=== PATIENT | female | born 1950 | race Caucasian/White ===

== ENCOUNTER 2017-02-15 15:12 | Inpatient (IN) | payer MEDICARE ==
[2017-02-15] MEDS ORDERED: Metoclopramide HCl 10 MG/2 ML VIAL ONE (15:52)
--- NOTE | 2017-02-15 16:03 | RAD ---
PORTABLE CHEST: 02/15/17 HISTORY: Hyperventilation, dizziness. Heart size is within normal limits. There are atherosclerotic changes of the aorta. Lungs show some l inear scar. No focal infiltrates. IMPRESSION: No active intrathoracic disease. POS: [facility]
[2017-02-15 16:26] LABS: ALT (SGPT) 23 U/L (8-55); AST (SGOT) 33 U/L (5-34); Alkaline Phosphatase 72 U/L (40-150); Anion Gap 18 mmol/L (10-20); BUN (Urea Nitrogen) 14 mg/dL (9.8-20.1); Bilirubin, Total 0.7 mg/dL (0.2-1.2); CK (CPK) 152 U/L (29-168); Calc. Creatinine Clearance 0 mL/min (70-130); Calcium 9.9 mg/dL (7.8-10.44); Carbon Dioxide 22 mmol/L (23-31); Chloride 87 mmol/L (98-107); Estimated GFR-MDRD 84; Globulin 2.5 g/dL (2.4-3.5); Lipase 15 U/L (8-78); Magnesium 1.5 mg/dL (1.6-2.6); Protein, Total 6.8 g/dL (6.0-8.3)
--- NOTE | 2017-02-15 16:33 | CT ---
NONCONTRAST CT OF THE BRAIN 02/15/17 INDICATION: Altered mental status. COMPARISON: Prior exam dated 05/13/16. FINDINGS: No acute infarct, hemorrhage or hydrocephalus is evident. Generalized cerebral atrophy is similar. Sk ull and extracranial soft tissues are unremarkable. IMPRESSION: No acute intracranial abnormality. POS: [facility]
[2017-02-15 16:42] LABS: #Basophils 0.1 thou/uL (0.0-0.2); #Eosinphils 0.1 thou/uL (0.0-0.7); #Lymphocytes 2.1 thou/uL (1.20-3.40); #Monocytes 0.6 thou/uL (0.11-0.59); #Neutrophils 4.7 thou/uL (1.40-6.50); %Basophils 0.9 % (0.0-1.0); %Eosinophils 1.6 % (0.0-10.0); %Lymphocytes 27.7 % (21.0-51.0); %Monocytes 8.1 % (0.0-10.0); Hematocrit 40.3 % (36.0-47.0); Mean Platelet Volume 7.7 fL (7.4-10.4); Red Blood Cell (RBC) Count 4.47 mill/uL (4.20-5.40); White Blood Cell (WBC) Count 7.7 thou/uL (4.8-10.8)
[2017-02-15 16:59] LABS: Troponin I Less than 0.010 ng/mL (< 0.028)
[2017-02-15] MEDS ORDERED: Acetaminophen 325 MG TAB PO PRN (18:34)
[2017-02-15] MEDS ORDERED: Acetaminophen 650 MG Suppository PR PRN (18:34)
[2017-02-15] MEDS ORDERED: ALPRAZolam 0.25 MG TAB ONE (18:44)
[2017-02-15] MEDS ORDERED: Sodium Chloride 0.9% 1,000 ML IV SCH (18:45)
[2017-02-15] MEDS ORDERED: Magnesium Sulfate 4 GM in Sodium Chloride 0.9% 250 ML 250 ML IVPB SCH (20:00)
--- NOTE | 2017-02-15 20:17 | HP ---
PRIMARY CARE PHYSICIAN: Sundar Mendez M.D. CHIEF COMPLAINT: Confusion. HISTORY OF PRESENT ILLNESS: Ms. Ornelas is a pleasant 66-year-old lady, who was seen at [facility] on 02/15/2017. She reportedly used to scuba dive about 20 years ago. Last year, she went scuba diving and had a maribeth ef episode of confusion. Today, she went scuba diving again. She reports that the pool was probably 20-feet deep. She was in the pool for about 3 hours. When she got out of the pool, she felt disori ented. She was reportedly confused, mumbling. She was therefore brought to the emergency room. She denies any chest pain or shortness of breath. She denies any fevers or chills. She was reported ly hyperventilating when she came to the emergency room. She denies any nausea or vomiting. She also reports that when she got out of the pool, she had cramps in her calves, nausea, anxiety, ti ngling in fingers, dizziness, and headache. All the symptoms have resolved. REVIEW OF SYSTEMS: The following complete review of systems was negative, unless otherwise mentioned in the HPI or below: Constitutional: Weight loss or gain, sense of well-being, ability to conduct usual activities, exerc ise tolerance. Skin/Breast: Rash, itching, changes in hair growth or loss, nail changes, breast lumps, tenderness, swelling, nipple discharge. Eyes: Vision, double vision, tearing, blind spots, pain. ENT/Mouth: Headaches (location, time of onset, duration, precipitating factors), vertigo, lightheade dness, injury. Vision, double vision, tearing, blind spots, pain, nose bleeding, colds, obstruction, discharge, dental difficulties, gingival bleeding, dentures, neck stiffness, pain, tenderness, masses in thyroid or other areas. Cardiovascular: Precordial pain, substernal distress, palpitations, syncope, dyspnea on exertion, or thopnea, nocturnal paroxysmal dyspnea, edema, cyanosis, hypertension, heart murmurs, varicosities, ph lebitis, claudication. Respiratory: Pain, shortness of breath, wheezing, stridor, cough, hemoptysis, fever or night sweats. Gastrointestinal: Poor appetite, dysphagia, indigestion, abdominal pain, heartburn, eructation, naus ea, vomiting, hematemesis, jaundice, constipation, or diarrhea, abnormal stools (francisco-colored, tarry, bloody, greasy, foul-smelling), flatulence, hemorrhoids, recent changes in bowel habits. Genitourinary: Urgency, frequency, dysuria, nocturia, hematuria, polyuria, oliguria, unusual (or yue nge in) color of urine, stones, hesitancy, change in size of stream, dribbling, acute retention or in continence, libido, potency. Musculoskeletal: Pain, swelling, redness or heat of muscles or joints, limitation, of motion, muscul ar weakness, atrophy, cramps. Neurologic/Psychiatric: Convulsions, paralyzes, tremor, incoordination, paresthesias, difficulties w ith memory of speech, sensory or motor disturbances, or muscular coordination (ataxia, tremor), emoti onal problems, anxiety, depression, previous psychiatric care, unusual perceptions, hallucinations. Allergy/Immunologic: Skin rash, anemia, bleeding tendency, polydipsia, polyuria, intolerance to heat or cold. PAST MEDICAL HISTORY: Significant for hypertension and dyslipidemia. PAST SURGICAL HISTORY: Significant for back surgery x2, neck surgery, bilateral knee surgery, deric an section x2, and hysterectomy. PSYCHIATRIC HISTORY: Significant for depression and anxiety. SOCIAL HISTORY: Patient denies tobacco use, alcohol use, or recreational drug use. She uses marijua na in the past. FAMILY HISTORY: Significant for stroke in both parents. ALLERGIES: No known drug allergies. CURRENT MEDICATIONS: She does not recall the names of her medications, tells me that she takes blood pressure pills. PHYSICAL EXAMINATION: GENERAL: Ms. Ornelas is awake and alert, not in acute distress. VITAL SIGNS: Blood pressure is 152/85, pulse is 68. She is breathing at rate of 14 and saturating 9 8% on room air. She is afebrile. EYES: No scleral icterus, no conjunctival pallor. ENT: Moist mucosal membranes, no oropharyngeal erythema or exudates. NECK: Supple, nontender, normal range of movement, trachea is midline. RESPIRATORY: Accessory muscles of breathing are not active. Chest wall movements are symmetric bila terally. LUNGS: Clear to auscultation without wheeze, rhonchi, or crepitations. CARDIOVASCULAR: S1 and S2 are heard, regular. Peripheral pulses palpable. No carotid bruit, no per icardial rub. ABDOMEN: Soft, nontender, bowel sounds heard, no hepatomegaly, no splenomegaly. NEUROLOGIC: Cranial nerves II-XII are intact. Power is 5/5 in all 4 extremities. No focal motor or sensory deficits. Cerebellar exam unremarkable. Deep tendon reflexes 2+, plantar reflexes downgoin g bilaterally. MUSCULOSKELETAL: Power is 5/5 in all 4 extremities. Normal range of movement at all major extremity joints. LYMPHATIC: No cervical lymphadenopathy. SKIN: No rashes or subcutaneous nodules. PSYCHIATRIC: Normal mood, normal affect, patient is oriented to person, place, month, day of the wee k, and year, but could not tell me the exact date. LABORATORY DATA: Ms. Ornelas's labs and investigations were reviewed. I reviewed her electrocardiog alex, which shows normal sinus rhythm, no ST changes to suggest an acute coronary syndrome. I also re viewed her chest x-ray, which does not show any pulmonary infiltrates. CT scan of the brain done wit hout contrast did not reveal any acute intracranial abnormalities. Laboratory investigation show unr emarkable CBC, hyponatremia with sodium of 124, hypokalemia with potassium of 3.4, normal creatinine, decreased magnesium of 1.5, normal calcium, normal liver profile, normal lipase, and normal troponin I. ASSESSMENT AND PLAN: Ms. Ornelas is a pleasant 66-year-old lady, who was seen at [facility] on 02/15/2017. Her problem list includes: 1. Acute encephalopathy: Etiology unclear, she is hyponatremic at this time. We will also check ur ine studies to rule out urinary tract infection. 2. Hyponatremia: Etiology unclear. Once medications are clarified, we will hold any diuretics. We will initiate workup for hyponatremia. We will hydrate with normal saline and recheck her sodium le keisha. She reports that she is on low-sodium diet at home. We will start her on regular diet here. 3. Hypokalemia. Replace potassium, recheck. 4. Hypomagnesemia: Replace magnesium, recheck magnesium level. 5. Hypertension. Monitor vital signs, titrate antihypertensives as needed. 6. Dyslipidemia: Resume home medications once clarified. Many thanks for allowing me to participate in your patient's care. Please feel free to contact me wi th any questions or concerns. LEVEL OF RISK: High. LEVEL OF COMPLEXITY: High.
[2017-02-15] MEDS: NS 0.9% w/ 40 MEQ KCL 1,000 ML IV SCH (21:24)
[2017-02-15 23:57] VITALS: BMI 22.4
[2017-02-16] MEDS: NS 0.9% w/ 40 MEQ KCL 1,000 ML IV SCH (04:01)
[2017-02-16 05:26] LABS: Bilirubin Negative (Negative); Blood, Urine Negative (Negative); Glucose, Urine (Dipstick) Negative (Negative); Ketone, Urine Negative (Negative); Nitrite Negative (Negative); Protein, Urine (Dipstick) Negative (Neg-Trace); Urobilinogen 0.2 mg/dL (0.2-1.0)
[2017-02-16 06:04] LABS: #Eosinphils 0.1 thou/uL (0.0-0.7); #Lymphocytes 1.7 thou/uL (1.20-3.40); #Monocytes 0.5 thou/uL (0.11-0.59); #Neutrophils 2.2 thou/uL (1.40-6.50); %Basophils 0.3 % (0.0-1.0); %Eosinophils 3.2 % (0.0-10.0); %Lymphocytes 36.5 % (21.0-51.0); %Monocytes 11.6 % (0.0-10.0); Hematocrit 38.3 % (36.0-47.0); Mean Platelet Volume 7.1 fL (7.4-10.4); Red Blood Cell (RBC) Count 4.16 mill/uL (4.20-5.40); White Blood Cell (WBC) Count 4.5 thou/uL (4.8-10.8)
[2017-02-16 06:27] LABS: Anion Gap 8 mmol/L (10-20); BUN (Urea Nitrogen) 11 mg/dL (9.8-20.1); Calc. Creatinine Clearance 84 mL/min (70-130); Calcium 8.6 mg/dL (7.8-10.44); Carbon Dioxide 28 mmol/L (23-31); Chloride 104 mmol/L (98-107); Cholesterol 129 mg/dl (< 200 Desired); Estimated GFR-MDRD Greater than 90; LDL Cholesterol, Calculated 64 mg/dL; Magnesium 2.7 mg/dL (1.6-2.6)
[2017-02-16] MEDS ORDERED: FLU VACC TS2017-18 (>65YR) 0.5 ML SYRINGE IM ONE (09:00)
[2017-02-16] MEDS ORDERED: Enoxaparin Sodium 40 MG/0.4 ML SYRINGE SC SCH (09:00)
[2017-02-16 09:38] VITALS: BP 122/78; TEMP 98.1
--- NOTE | 2017-02-16 11:41 | PDOC.PN ---
- Subjective Encounter Start Date: 02/16/17 Encounter Start Time: 11:39 Ms. Ornelas was seen today in follow-up of Hyponatremia. She says she feels much better, and wants to go home. - Objective Resuscitation Status: Resuscitation Status FULL:Full Resuscitation MAR Reviewed: Yes Vital Signs & Weight: Vital Signs (12 hours) Temp Pulse Resp BP Pulse Ox 02/16/17 08:40 98.1 F 83 16 122/78 97 02/16/17 08:20 98.1 F 83 16 02/16/17 04:00 98.2 F 79 16 99/55 L 94 L 02/15/17 23:59 97.6 F 71 16 98 Weight Weight 130 lb 6.4 oz I&O: 02/15/17 02/16/17 02/17/17 06:59 06:59 06:59 Intake Total 1360 Output Total 3500 Balance -2140 Result Diagrams: 02/16/17 05:27 02/16/17 05:27 Phys Exam - Physical Examination HEENT: PERRLA Respiratory: no wheezing, no rales, no rhonchi, clear to auscultation bilateral Cardiovascular: RRR, no significant murmur Gastrointestinal: soft, non-tender, positive bowel sounds Musculoskeletal: no edema Dx/Plan (1) Hyponatremia Code(s): E87.1 - HYPO-OSMOLALITY AND HYPONATREMIA Status: Acute (2) Hypertension Code(s): I10 - ESSENTIAL (PRIMARY) HYPERTENSION Status: Acute (3) Hypomagnesemia Code(s): E83.42 - HYPOMAGNESEMIA Status: Acute (4) Hypokalemia Code(s): E87.6 - HYPOKALEMIA Status: Acute - Plan * Hyponatremia- this has corrected with IV saline administration. It was likely c combination of soium loss through sweating, and replacement with hypotonic fluids, and exacerbated by HCTZ. * Will change her blood pressure medication to Valsartan alone * She is stable for discharge home today.
--- NOTE | 2017-02-16 12:35 | DIS ---
DATE OF ADMISSION: 02/15/2017 DATE OF DISCHARGE: 02/16/2017 PRIMARY CARE PHYSICIAN: Sundar Mendez M.D. DISCHARGE DISPOSITION: Home. PRIMARY DISCHARGE DIAGNOSES: 1. Hyponatremia. 2. Volume depletion. 3. Hypokalemia. 4. Hypomagnesemia. 5. History of hypertension. DISCHARGE MEDICATIONS: The patient was taken off of valsartan, hydrochlorothiazide and changed to rust plain valsartan due to hyponatremia and hypokalemia. She is to continue mupirocin ointment, Myrbe triq 50 mg daily, Plaquenil 200 mg daily, Flexeril 10 mg t.i.d. as needed, and Lipitor 10 mg daily. PROCEDURES DONE DURING ADMISSION: The patient had a CT scan of the brain and showing no acute intrac ranial abnormalities. Patient also had a CT scan of the abdomen and pelvis showing there are multipl e diverticula in the colon with possible early acute diverticulitis in the left colon. CODE STATUS: FULL CODE. ALLERGIES: No known drug allergies. HOSPITAL COURSE: Ms. Ornelas is a pleasant 66-year-old female who was brought to the emergency room due to altered mental status. She had recently gone scuba diving and she says that when she was ther e, it was hot outside and she had several 10-20 pounds scuba gear on her shoulders and she was there in the water for about 3 hours off and on. Following this, she came to the hospital and was acutely confused. She was found to be hyponatremic with sodium of 124. She was also hypokalemic and hypomag nesemic. It was noted that she is on valsartan and hydrochlorothiazide, and I suspect that the hypon atremia was a combination of sodium loss through sweating and also renal losses from hydrochlorothiaz wade with replacement with hypotonic fluids. She was therefore taken off of the valsartan, hydrochlor othiazide and placed slowly on valsartan. She was given the explanation for the change in the medica tions and understood. Her potassium and magnesium were also replaced during her hospital stay. At t he time of discharge, her sodium was 136 and she was completely asymptomatic. She is to follow up wi th her primary care physician in approximately one week.
--- NOTE | 2017-02-25 13:23 | EKG ---
Test Reason : Blood Pressure : / mmHG Vent. Rate : 102 BPM Atrial Rate : 102 BPM P-R Int : 000 ms QRS Dur : 078 ms QT Int : 392 ms P-R-T Axes : 000 064 069 degrees QTc Int : 510 ms Accelerated Junctional rhythm Abnormal ECG Confirmed by MEGAN VICTORIA ([id number]), metropolitan editor KIMBERLY HAYS ([id number] on 02/25/2017 1:23:28 PM Referred By: Confirmed By:MEGAN VICTORIA
== END 2017-02-16 13:06 | disposition home or self-care (01) | DRG 640 ==
LOC: ERS 15:12 → 2NO 18:20
PROVIDERS: ADMIT Internal Medicine; ATTEND Internal Medicine
DX: E87.1 Hypo-osmolality and hyponatremia (principal); G93.40 Encephalopathy, unspecified; E83.42 Hypomagnesemia; I10 Essential (primary) hypertension; E78.5 Hyperlipidemia, unspecified; F32.9 Major depressive disorder, single episode, unspecified; F41.9 Anxiety disorder, unspecified; E87.6 Hypokalemia; E86.1 Hypovolemia; T50.2X5A Adverse effect of carbonic-anhydrase inhibitors, benzothiadiazides and other diuretics, initial encounter
CPT/HCPCS: 36415; 70450; 71010; 80048; 80053; 80061; 81003; 82550; 82553; 83690; 83735; 83930; 83935; 84100; 84443; 84484; 85025; 93005; 96365; A4216; J1650; J2765; J3475; J7050

== ENCOUNTER 2017-06-04 13:38 | Outpatient (CLI) | payer MEDICARE | END 2017-06-04 13:39 | disposition home or self-care (01) | LOC: BICMAMMO 13:38 | PROVIDERS: ATTEND Family Medicine | DX: Z12.31 Encounter for screening mammogram for malignant neoplasm of breast (principal); R92.1 Mammographic calcification found on diagnostic imaging of breast | CPT/HCPCS: 77063; 77067 ==

== ENCOUNTER 2018-11-13 08:22 | Outpatient (CLI) | payer MEDICARE ==
--- NOTE | 2018-11-13 09:31 | BD ---
DEXA BONE DENSITY SCAN: DATE: 11/13/2018. COMPARISON: None. HISTORY: Postmenopausal female undergoing screening for osteoporosis. FINDINGS: BMD (g/cm2) RIGHT: Femoral Neck: 0.694 T-Score: -1.5 Total Femur: 0.843 T-Score: -0.8 LEFT: Femoral Neck: 0.690 T-Score: -1.4 Total Femur: 0.880 T-Score: -0.5 FRAX-WHO fracture risk assessment tool is not reported as the patient is treated for osteoporosis IMPRESSION: Osteopenia within bilateral femoral necks, correlating with a moderately increased risk for fracture. Transcribed Date/Time: 11/13/2018 10:46 AM
== END 2018-11-13 08:23 | disposition home or self-care (01) ==
LOC: BICMAMMO 08:22
PROVIDERS: ATTEND Internal Medicine Rheumatology
DX: M81.0 Age-related osteoporosis without current pathological fracture (principal); M85.89 Other specified disorders of bone density and structure, multiple sites
CPT/HCPCS: 77080

== ENCOUNTER 2018-12-23 08:42 | Outpatient (CLI) | payer MEDICARE ==
[2018-12-23 11:17] LABS: #Eosinphils 0.1 thou/uL (0.0-0.7); #Lymphocytes 1.9 thou/uL (1.20-3.40); #Monocytes 0.7 thou/uL (0.11-0.59); #Neutrophils 5.2 thou/uL (1.40-6.50); %Basophils 0.5 % (0.0-1.0); %Eosinophils 1.8 % (0.0-10.0); %Lymphocytes 23.6 % (21.0-51.0); %Monocytes 8.8 % (0.0-10.0); %Neutrophils 65.3 % (42.0-75.0); Hemoglobin 14.9 g/dL (12.0-16.0); Mean Corpuscular HGB CONC 33.5 g/dL (32.0-36.0); Mean Corpuscular Hemoglobin 31.5 pg (27.0-31.0); Mean Corpuscular Volume 94.2 fL (78.0-98.0); Mean Platelet Volume 7.5 fL (7.4-10.4); Platelet Count 340 thou/uL (130-400); RBC Distribution Width 12.5 % (11.5-14.5); Red Blood Cell (RBC) Count 4.73 mill/uL (4.20-5.40)
[2018-12-23 11:35] LABS: Anion Gap 13 mmol/L (10-20); BUN (Urea Nitrogen) 14 mg/dL (9.8-20.1); Calc. Creatinine Clearance 0 mL/min (70-130); Calcium 9.4 mg/dL (7.8-10.44); Carbon Dioxide 25 mmol/L (23-31); Chloride 100 mmol/L (98-107); Estimated GFR-MDRD 81; Glucose 78 mg/dL (80-115); Potassium 4.2 mmol/L (3.5-5.1); Sodium 134 mmol/L (136-145)
[2018-12-23 11:42] LABS: Bacteria/HPF 4+ HPF (None Seen); Bilirubin Negative (Negative); Blood, Urine Negative (Negative); Clarity Turbid (Clear); Glucose, Urine (Dipstick) Normal (Negative); Leukocyte 25 Leu/uL (Negative); Nitrite Negative (Negative); Protein, Urine (Dipstick) Negative (Neg-Trace); RBC/HPF 0-3 HPF (0-3); Urobilinogen Normal mg/dL (Less than 2)
--- NOTE | 2018-12-24 23:22 | EKG ---
Test Reason : Blood Pressure : / mmHG Vent. Rate : 082 BPM Atrial Rate : 082 BPM P-R Int : 182 ms QRS Dur : 070 ms QT Int : 396 ms P-R-T Axes : 064 069 070 degrees QTc Int : 462 ms Normal sinus rhythm Normal ECG When compared with ECG of 15-FEB-2017 15:14, Sinus rhythm has replaced Junctional rhythm ST no longer depressed in Anterior leads T wave inversion no longer evident in Lateral leads Confirmed by Franklin REED ([id number]) on 12/24/2018 11:21:47 PM Referred By: [place] Confirmed By:Franklin REED
== END 2018-12-23 08:43 | disposition home or self-care (01) ==
LOC: LABBT 08:42
PROVIDERS: ATTEND Orthopaedic Surgery Hand Surgery
DX: Z01.818 Encounter for other preprocedural examination (principal); M65.332 Trigger finger, left middle finger; M25.742 Osteophyte, left hand
CPT/HCPCS: 80048; 81001; 85025; 93005; 93010

== ENCOUNTER 2019-01-20 07:36 | Outpatient (CLI) | payer MEDICARE ==
[2019-01-20 10:59] LABS: #Eosinphils 0.2 thou/uL (0.0-0.7); #Lymphocytes 1.9 thou/uL (1.20-3.40); #Monocytes 0.7 thou/uL (0.11-0.59); #Neutrophils 4.4 thou/uL (1.40-6.50); %Basophils 0.5 % (0.0-1.0); %Eosinophils 2.7 % (0.0-10.0); %Lymphocytes 26.4 % (21.0-51.0); %Monocytes 9.4 % (0.0-10.0); Hemoglobin 14.3 g/dL (12.0-16.0); Mean Corpuscular HGB CONC 33.4 g/dL (32.0-36.0); Mean Corpuscular Hemoglobin 31.1 pg (27.0-31.0); Mean Corpuscular Volume 93.1 fL (78.0-98.0); Mean Platelet Volume 7.5 fL (7.4-10.4); Platelet Count 360 thou/uL (130-400); RBC Distribution Width 11.8 % (11.5-14.5); Red Blood Cell (RBC) Count 4.62 mill/uL (4.20-5.40); White Blood Cell (WBC) Count 7.2 thou/uL (4.8-10.8)
[2019-01-20 11:17] LABS: Bacteria/HPF 3+ HPF (None Seen); Bilirubin Negative (Negative); Blood, Urine Negative (Negative); Clarity Clear (Clear); Glucose, Urine (Dipstick) Normal (Negative); Leukocyte Negative Leu/uL (Negative); Nitrite Negative (Negative); Protein, Urine (Dipstick) Negative (Neg-Trace); RBC/HPF 0-3 HPF (0-3); Urobilinogen Normal mg/dL (Less than 2); WBC/HPF 0-3 HPF (0-3)
== END 2019-01-20 07:37 | disposition home or self-care (01) ==
LOC: LABBT 07:36
PROVIDERS: ATTEND Orthopaedic Surgery Hand Surgery
DX: Z01.812 Encounter for preprocedural laboratory examination (principal); M65.332 Trigger finger, left middle finger
CPT/HCPCS: 81001; 85025

== ENCOUNTER 2019-01-22 08:39 | Day surgery (SDC) | payer MEDICARE ==
[2019-01-20 09:42] VITALS: BMI 21.0
[2019-01-22] MEDS ORDERED: ePHEDrine/0.9% NaCl/PF SYRINGE 50 mg/10 ml ONE (10:19)
[2019-01-22] MEDS ORDERED: Ketorolac Tromethamine 30 MG/ML VIAL ONE (10:19)
[2019-01-22] MEDS ORDERED: Dexamethasone 20 MG/5 ML VIAL ONE (10:19)
[2019-01-22] MEDS ORDERED: Lidocaine 1% PF 5 ML VIAL ONE (10:19)
[2019-01-22] MEDS ORDERED: Ondansetron PF 4 MG/2 ML Vial ONE (10:19)
[2019-01-22] MEDS ORDERED: PHENYLEPHRINE-NS 100 MCG/ML 10 ML SYRINGE ONE (10:19)
[2019-01-22] MEDS ORDERED: PROPOFOL 200 MG/20 ML VIAL ONE (10:19)
[2019-01-22] MEDS ORDERED: Scopolamine 1.5 mg/72 hour Patch ONE (10:39)
[2019-01-22] MEDS ORDERED: Midazolam HCl 2 mg/2 ml Vial ONE (10:39)
[2019-01-22] MEDS ORDERED: Promethazine HCl 25 MG/ML VIAL ONE (11:06)
[2019-01-22] MEDS ORDERED: Propofol 500 MG/50 ML VIAL ONE (11:06)
[2019-01-22] MEDS ORDERED: Bacitracin Zinc Ointment 30 gm TUBE ONE (11:08)
[2019-01-22] MEDS ORDERED: Bupivacaine PF 0.5% 30 ML VIAL ONE (11:08)
[2019-01-22] MEDS ORDERED: Betamet Acet/Betamet Na Ph 30 MG/5 ML VIAL ONE (11:08)
[2019-01-22] MEDS ORDERED: Sodium Chloride 0.9% 10 ML ONE (11:08)
--- NOTE | 2019-01-25 11:56 | OP ---
DATE OF PROCEDURE: 01/22/2019 PREOPERATIVE DIAGNOSES: 1. Left middle finger A1 tricia tenosynovitis with triggering. 2. Dorsal proximal phalanx radial osteophyte, stemming from the joint just extracapsular underneath the sagittal band. PROCEDURES PERFORMED: 1. Arthrotomy of metacarpophalangeal joint with osteophyte excision. 2. A1 tricia release. 3. Radical flexor tenosynovectomy, left middle finger A1 tricia level. ESTIMATED BLOOD LOSS: 10 mL. TOURNIQUET TIME: 31 minutes. ADDITIONAL FINDINGS: 1. 3 x 5 mm dorsal radial base of proximal phalanx left middle finger osteophyte. 2. Tight A1 tricia region for the tendon as well as marked tenosynovitis. DESCRIPTION OF PROCEDURE: After successful general endotracheal anesthesia, the limb was prepped and draped. Time-out was done appropriately. We then injected the metacarpophalangeal joint region of the left middle finger with 12 mL of 0.5% Marcaine before the procedure began, no epinephrine additional 8 afterwards. We then approached the palmar aspect with a modified Jagjit incision just radial to the midline of the left middle finger at the A1 tricia. We carried through skin and subcutaneous tissue, identified the ulnar and radial neurovascular bundles, protected them. I visualized the A1 tricia, where there was thick tenosynovitis, so we first released the A1 tricia in the midline with a Milton blade. Then, we noticed still was some left tendon adhesions and synovitis. The radical flexor tenosynovectomy had to be performed to ensure that without catch or trigger. flexion and extension passively. The specimen was sent to the lab from the tenosynovium excision. We then turned our attention to the dorsal aspect of the left middle finger metacarpophalangeal joint, where there was a large bump, very palpable with 90 degrees of passive flexion on the radial aspect. We made a small zigzag incision over the central tendon, carried it slightly radially until we could dissect down to where the mass could be found There was only 2 mm from the joint line but was almost 5 mm in diameter and raised. We gently entered the sagittal bands, longitudinal only, and then lifted out the mass, soft tissue, and used the osteotome in a combination of Milton blade to lift it out completely. The joint was spared. We then closed the defect in the lateral band with an interrupted 4-0 [id number] Prolene, deflated the tourniquet, had hemostasis. We then closed both skin incisions dorsally and palmarly with 4-0 nylon in the interrupted mattress pattern. The patient left the operating room in a bulky dressing and splint. No evidence of anesthetic or operative complication. Job ID: [id number]
== END 2019-01-22 15:00 | disposition home or self-care (01) ==
LOC: SDC 08:39
PROVIDERS: ATTEND Orthopaedic Surgery Hand Surgery
PROC: 0LB80ZZ Excision of Left Hand Tendon, Open Approach (ICD-10-PCS; principal; 2019-01-22)
DX: M65.332 Trigger finger, left middle finger (principal); M25.742 Osteophyte, left hand; M65.9 Synovitis and tenosynovitis, unspecified; M06.9 Rheumatoid arthritis, unspecified; I10 Essential (primary) hypertension; E78.5 Hyperlipidemia, unspecified; M50.30 Other cervical disc degeneration, unspecified cervical region; M81.0 Age-related osteoporosis without current pathological fracture; Z79.899 Other long term (current) drug therapy
CPT/HCPCS: 88305; 88307; J0690; J0702; J1100; J1885; J2001; J2250; J2405; J2550; J2704; J3490; S0020

== ENCOUNTER 2019-10-20 09:52 | Outpatient (CLI) | payer MEDICARE ==
--- NOTE | 2019-10-20 11:00 | MMO ---
Bilateral MAMMO Bilat Screen [facility]. CLINICAL HISTORY: Patient is 69 years old and is seen for screening. The patient has no family history of breast cancer. The patient has no personal history of cancer. VIEWS: The views performed were: bilateral craniocaudal with tomosynthesis and bilateral mediolateral oblique with tomosynthesis. FILMS COMPARED: The present examination has been compared to prior imaging studies performed at [facility] on 04/20/2014, 04/26/2015, 05/08/2016 and 06/04/2017. This study has been interpreted with the assistance of computer-aided detection. MAMMOGRAM FINDINGS: There are scattered fibroglandular densities. There are no suspicious masses, suspicious calcifications, or new areas of architectural distortion. IMPRESSION: THERE IS NO MAMMOGRAPHIC EVIDENCE OF MALIGNANCY. A ROUTINE FOLLOW-UP MAMMOGRAM IN 1 YEAR IS RECOMMENDED. THE RESULTS OF THIS EXAM WERE SENT TO THE PATIENT. ACR BI-RADS Category 1 - Negative MAMMOGRAPHY NOTE: 1. A negative mammogram report should not delay a biopsy if a dominant of clinically suspicious mass is present. 2. Approximately 10% to 15% of breast cancers are not detected by mammography. 3. Adenosis and dense breasts may obscure an underlying neoplasm. Reported by: NIKKI BRODERICK MD Electonically Signed: [id number]
== END 2019-10-20 09:53 | disposition home or self-care (01) ==
LOC: BICMAMMO 09:52
PROVIDERS: ATTEND Nurse Practitioner Family
DX: Z12.31 Encounter for screening mammogram for malignant neoplasm of breast (principal)
CPT/HCPCS: 77063; 77067

== ENCOUNTER 2020-06-01 07:58 | Outpatient (CLI) | payer MEDICARE | END 2020-06-01 07:59 | disposition home or self-care (01) | LOC: BICMAMMO 07:58 | PROVIDERS: ATTEND Internal Medicine Rheumatology | DX: M81.0 Age-related osteoporosis without current pathological fracture (principal); M85.851 Other specified disorders of bone density and structure, right thigh; M85.852 Other specified disorders of bone density and structure, left thigh | CPT/HCPCS: 77080 ==

== ENCOUNTER 2020-10-20 09:02 | Outpatient (CLI) | payer MEDICARE | END 2020-10-20 09:03 | disposition home or self-care (01) | LOC: BICMAMMO 09:02 | PROVIDERS: ATTEND Family Medicine | DX: Z12.31 Encounter for screening mammogram for malignant neoplasm of breast (principal) | CPT/HCPCS: 77063; 77067 ==

== ENCOUNTER 2021-05-14 09:12 | Outpatient (CLI) | payer MEDICARE | END 2021-05-14 09:13 | disposition home or self-care (01) | LOC: ULT 09:12 | PROVIDERS: ATTEND Urology | DX: R35.0 Frequency of micturition (principal); N28.1 Cyst of kidney, acquired; Z87.440 Personal history of urinary (tract) infections | CPT/HCPCS: 76770 ==

== ENCOUNTER 2022-05-08 08:44 | Outpatient (CLI) | payer MEDICARE, OTHER | END 2022-05-08 08:45 | disposition home or self-care (01) | LOC: BICMAMMO 08:44 | PROVIDERS: ATTEND Internal Medicine Rheumatology | DX: M81.0 Age-related osteoporosis without current pathological fracture (principal) | CPT/HCPCS: 77080 ==

== ENCOUNTER 2022-12-24 13:55 | Outpatient (CLI) | payer MEDICARE, OTHER | END 2022-12-24 13:56 | disposition home or self-care (01) | LOC: BICMAMMO 13:55 | PROVIDERS: ATTEND Nurse Practitioner Family | DX: Z12.31 Encounter for screening mammogram for malignant neoplasm of breast (principal) | CPT/HCPCS: 77063; 77067 ==